=== PATIENT | female | born 1945 | race Caucasian/White ===

== ENCOUNTER → 2018-01-07 | Outpatient (CLI) | payer OTHER ==
[~2018-01-07] MED LIST: ASPIRIN325 MG PO; CENTRUM SILVER1 EAC4 PO; COZAAR50 MG PO; CYANOCOBALAM1000 MCG PO; GLUCOSAMINE CH1 EAC2 PO; GLUCOSAMINE R1000 MG PO; IRON325 M1 PO; K-DUR20 MEQ PO; KLOR-CON M2020 MEQ PO; LASIX40 MG PO; LEVEMIR100 UNIT/2 SC; LIPITOR80 MG PO; LITE COAT ASPI325 M1 PO; NORVASC5 MG PO; NOVOLOG PE100 UNITS/ SC; PERCOCET 5/31 TABLET PO; PROBIOTIC1 EAC5 PO; TRESIBA FL100 UNIT/1 SC; TRULICITY0.75 MG/0. SC; TRULICITY1.5 MG/0.5 SC; VITAMIN D-32000 UNI2 PO
== END | disposition home or self-care (01) ==
DX: M17.11 Unilateral primary osteoarthritis, right knee (principal); R26.2 Difficulty in walking, not elsewhere classified; M25.561 Pain in right knee; M25.661 Stiffness of right knee, not elsewhere classified; M62.81 Muscle weakness (generalized); Z74.1 Need for assistance with personal care
CPT/HCPCS: 97161 GP; 97165 GO; 97530 GP; 97535 GO; G8978 GP; G8979 GP; G8980 GP; G8987 GO; G8988 GO; G8989 GO

== ENCOUNTER 2018-01-12 22:03 | Inpatient (IN) | payer OTHER ==
[~2018-01-12] VITALS: Ht 160 cm; Wt 138.5 kg
[2018-01-13 06:28] VITALS: BP 177/88
[2018-01-13] MEDS ORDERED: ROSUVASTATIN CA40 MG PO (06:40)
[2018-01-13 10:10] LABS: HEMATOCRIT 43.9 % (36.0-46.0); HEMOGLOBIN 14.7 G/DL (11.9-15.5); MCH 31.8 PG (29.0-34.0); MCHC 33.5 G/DL (30.0-36.0); PLATELET COUNT 257 K/uL (156-360); RBC DIS.WIDTH-CV 12.7 % (11.8-14.6); RBC DIS.WIDTH-SD 44.7 % (39-53); RED BLOOD COUNT 4.62 M/uL (3.80-5.20); WHITE BLOOD COUNT 11.9 K/uL (4.1-10.2)
[2018-01-13 10:46] VITALS: BP 175/78
[2018-01-13 15:49] VITALS: BP 172/85
[2018-01-13 20:11] VITALS: BP 179/88
[2018-01-14 00:17] VITALS: BP 139/74
[2018-01-14 04:00] VITALS: BP 135/74
[2018-01-14 05:52] LABS: HEMATOCRIT 42.5 % (36.0-46.0); HEMOGLOBIN 14.1 G/DL (11.9-15.5); MCV 95.1 FL (83-99)
[2018-01-14 06:04] LABS: CHLORIDE 103 MEQ/L (99-109); CREATININE 0.7 MG/DL (0.6-1.3); GFR ESTIMATE (CALCULATED) > 59 mL/min/; GLUCOSE 210 mg/dL (70-99); SODIUM 140 MEQ/L (136-147); UREA NITROGEN (BUN) 12 mg/dL (9-23)
[2018-01-14 08:08] VITALS: BP 190/88
[2018-01-14 11:40] VITALS: BP 179/81
[2018-01-14 15:31] VITALS: BP 192/93
[2018-01-14 20:23] VITALS: BP 175/75
[2018-01-15] VITALS: BP 149/58
[2018-01-15 04:00] VITALS: BP 184/78
[2018-01-15 05:17] LABS: MCV 93.9 FL (83-99)
[2018-01-15 05:37] LABS: CHLORIDE 104 MEQ/L (99-109); CREATININE 0.6 MG/DL (0.6-1.3); GFR ESTIMATE (CALCULATED) > 59 mL/min/; GLUCOSE 201 mg/dL (70-99); POTASSIUM 3.7 MEQ/L (3.7-5.4); SODIUM 140 MEQ/L (136-147); UREA NITROGEN (BUN) 10 mg/dL (9-23)
[2018-01-15 08:26] VITALS: BP 189/89
[2018-01-15] MEDS ORDERED: LOVENOX40 MG/0.4 SC (08:43)
[2018-01-15] MEDS ORDERED: CELECOXIB200 MG PO (08:43)
[2018-01-15] MEDS ORDERED: ENDOCET 5-3251 EACH PO (08:43)
[2018-01-15] MEDS ORDERED: SENNA PLUS TAB1 EACH PO (08:43)
[2018-01-15 11:36] VITALS: BP 186/75
[2018-01-15 15:26] VITALS: BP 189/84
[2018-01-15 19:50] VITALS: BP 168/78
[2018-01-16] VITALS: BP 160/74
[2018-01-16 04:20] VITALS: BP 141/92
[2018-01-16 08:23] VITALS: BP 171/74
== END 2018-01-16 14:19 | DRG 470 ==
LOC: ENRESERV 22:03 → 3WEST 01-13 05:47 → 2SOUTH 01-13 05:47 → 3WEST 01-13 10:28 → 2SOUTH 01-13 13:39 → 3WEST 01-16 14:19
PROVIDERS: Orthopaedic Surgery; Physician Assistant
PROC: 0SRC0J9 Replacement of Right Knee Joint with Synthetic Substitute, Cemented, Open Approach (ICD-10-PCS; principal; 2018-01-13)
DX: M17.11 Unilateral primary osteoarthritis, right knee (principal); Z68.43 Body mass index [BMI] 50.0-59.9, adult; E78.00 Pure hypercholesterolemia, unspecified; I10 Essential (primary) hypertension; I89.0 Lymphedema, not elsewhere classified; E11.9 Type 2 diabetes mellitus without complications; E66.01 Morbid (severe) obesity due to excess calories; E11.40 Type 2 diabetes mellitus with diabetic neuropathy, unspecified; E11.65 Type 2 diabetes mellitus with hyperglycemia
CPT/HCPCS: 71045; 73560; 80048; 82948; 85014; 85018; 85027; 97530 GP; C1713; J0131; J0690; J1650; J1815; J2250; J2405; J2795; J3010; J7050